=== PATIENT | female | born 1965 | race Caucasian/White ===

== ENCOUNTER 2019-06-04 07:43 | Day surgery (SDC) | payer OTHER ==
[2019-06-03 11:12] VITALS: BMI 37.7
--- NOTE | 2019-06-03 12:38 | HP ---
HISTORY OF PRESENT ILLNESS: Ms. Estrada is a pleasant 54-year-old woman, here today to discuss a long history of severe lower back pain, particularly with movement and walking, but more specifically a right lower extremity pain with numbness and right foot cramping that happens when she takes a few steps or when she "turns the wrong way." She has treated her foot problem with surgery, which did not change her symptoms in any way. She has also been treating her current symptoms with epidural steroid injections, physical therapy, and medications with again little to no avail. Pain is worsened with standing and walking, but improves with sitting, but only briefly as prolonged sitting also makes her back hurt. MRI on disk from outside facility reveals grade 1/borderline 2 slip with bilateral pars defects and associated lateral recess and foraminal stenosis bilaterally, that would well explain her symptoms. PHYSICAL EXAMINATION: NEUROLOGIC: The patient is alert and oriented x3. Gait is stooped and antalgic. Lower extremity motor exam is normal and 5/5 strength in all movements of bilateral lower extremities; however, she does have a positive right straight leg raise. PAST MEDICAL HISTORY: Significant for hypercholesterolemia, chronic pain syndrome, and history of blood clots. PAST SURGICAL HISTORY: Foot surgery in 2016. CURRENT MEDICATIONS: 1. Pravastatin. 2. Losartan. 3. Aspirin. 4. Xarelto. 5. Ranitidine. ALLERGIES: NO KNOWN DRUG ALLERGIES. ASSESSMENT: Pars defect, lumbar spondylolisthesis, lumbar spinal stenosis and radiculopathy. PLAN: Dr. Dewitt met with the patient, reviewed imaging, and advocated for an L5-S1 facetectomy and fusion. He explained to the patient the risks, benefits, and alternatives to the procedure. The patient expressed understanding and elected to move forward with surgery as discussed. I do believe the patient is mentally competent capable of making medical decisions for herself. We will move forward with surgery as planned. Job ID: [id number]
[2019-06-04 09:58] LABS: #Basophils 0.1 thou/uL (0.0-0.2); #Eosinphils 0.2 thou/uL (0.0-0.7); #Lymphocytes 2.1 thou/uL (1.20-3.40); #Monocytes 0.7 thou/uL (0.11-0.59); #Neutrophils 6.2 thou/uL (1.40-6.50); %Basophils 0.6 % (0.0-1.0); %Eosinophils 2.4 % (0.0-10.0); %Lymphocytes 22.9 % (21.0-51.0); %Monocytes 7.4 % (0.0-10.0); %Neutrophils 66.8 % (42.0-75.0); Hemoglobin 15.8 g/dL (12.0-16.0); Mean Corpuscular HGB CONC 34.3 g/dL (32.0-36.0); Mean Corpuscular Hemoglobin 28.5 pg (27.0-31.0); Mean Corpuscular Volume 83.2 fL (78.0-98.0); Mean Platelet Volume 6.8 fL (7.4-10.4); Platelet Count 273 thou/uL (130-400); RBC Distribution Width 12.6 % (11.5-14.5); Red Blood Cell (RBC) Count 5.53 mill/uL (4.20-5.40); White Blood Cell (WBC) Count 9.3 thou/uL (4.8-10.8)
[2019-06-04 10:18] LABS: Anion Gap 15 mmol/L (10-20); BUN (Urea Nitrogen) 16 mg/dL (9.8-20.1); Calc. Creatinine Clearance 96 mL/min (70-130); Calcium 9.3 mg/dL (7.8-10.44); Carbon Dioxide 22 mmol/L (22-29); Chloride 107 mmol/L (98-107); Estimated GFR-MDRD 52; Glucose 116 mg/dL (70-105); Potassium 4.4 mmol/L (3.5-5.1); Sodium 140 mmol/L (136-145)
[2019-06-04] MEDS ORDERED: Thrombin 5000 UNITS/5 ML VIAL ONE (10:23)
[2019-06-04] MEDS ORDERED: EPINEPHrine 1 MG/ML AMP ONE (10:23)
[2019-06-04] MEDS ORDERED: Bupivacaine PF 0.5% 30 ML VIAL ONE (10:23)
[2019-06-04] MEDS ORDERED: Fentanyl 100 MCG/2 ML VIAL ONE (10:31)
[2019-06-04] MEDS ORDERED: Ketorolac Tromethamine 30 MG/ML VIAL ONE (12:02)
[2019-06-04] MEDS ORDERED: PROPOFOL 200 MG/20 ML VIAL ONE (12:02)
[2019-06-04] MEDS ORDERED: EPHEDRINE 25 MG/5 ML SYRINGE ONE (12:02)
[2019-06-04] MEDS ORDERED: Rocuronium Bromide 10 MG/ML (10ML VIAL) ONE (12:02)
[2019-06-04] MEDS ORDERED: Lidocaine 1% PF 5 ML VIAL ONE (12:02)
[2019-06-04] MEDS ORDERED: Glycopyrrolate 0.2 MG/ML 5 ML SYRINGE ONE ×2 (12:02)
[2019-06-04] MEDS ORDERED: Dexamethasone 20 MG/5 ML VIAL ONE (12:02)
--- NOTE | 2019-06-04 13:03 | OP ---
DATE OF PROCEDURE: 06/04/2019 INSTRUMENT STERILIZER: Goyo Lopez PA-C INDICATION: Pain. 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 PROCEDURES PERFORMED: L5-S1 facetectomy and posterolateral instrumented fusion, placement of allograft, and placement of autograft. ANESTHESIA: General. DESCRIPTION OF PROCEDURE: The patient was brought into the operating room and placed under general anesthesia. She was flipped from the supine to prone position on the operating room table. A linear incision was planned over the L5-S1 segment. After prepping and draping and after an appropriate preoperative pause, the incision was created. The soft tissues were swept away from midline. Self-retaining retractors were placed in the wound for optimal exposure. A C-arm image was obtained to confirm the appropriate location. The patient had auto fused on the right side across the facet joints at L5-S1. There was no mobility on that side. At L5-S1 on the left, however, there was an obvious pars defect with motion at the level of the facet joint. The facet joint at L5-S1 on the left was removed as well as the lamina over the central canal. The exiting L5 nerve roots were decompressed bilaterally at L5 and S1 as were the descending nerve roots at S1. After completing the decompression, pedicle screws were placed at L5 and S1 on the left. An intraoperative 3D CT scan was performed to confirm appropriate placement of hardware. A shree was placed across the screw heads and final tightened. Allograft and autograft material were placed along the lateral confines of the instrumentation construct. The wound was irrigated. Hemostasis was maintained throughout. The wound was then closed in anatomic layers and a pressure dressing was applied. There were no known procedural complications. Job ID: [id number]
[2019-06-04] MEDS ORDERED: HYDROcodone/Acetaminophen 5/325 mg Tablet ONE (13:40)
--- NOTE | 2019-06-05 10:35 | EKG ---
Test Reason : PREOP Blood Pressure : / mmHG Vent. Rate : 061 BPM Atrial Rate : 061 BPM P-R Int : 146 ms QRS Dur : 084 ms QT Int : 400 ms P-R-T Axes : 034 028 027 degrees QTc Int : 402 ms Normal sinus rhythm Normal ECG Confirmed by THOMAS CHASE ([id number]) on 06/05/2019 10:35:17 AM Referred By: Omari KELLER Confirmed By:THOMAS CHASE
== END 2019-06-04 16:45 | disposition home or self-care (01) ==
LOC: SDC 07:43
PROVIDERS: ATTEND Neurological Surgery
PROC: 0SG0071 Fusion of Lumbar Vertebral Joint with Autologous Tissue Substitute, Posterior Approach, Posterior Column, Open Approach (ICD-10-PCS; principal; 2019-06-04)
PROC: 00BY0ZZ Excision of Lumbar Spinal Cord, Open Approach (ICD-10-PCS; principal; 2019-06-04)
DX: M48.061 Spinal stenosis, lumbar region without neurogenic claudication (principal); M43.16 Spondylolisthesis, lumbar region; M54.16 Radiculopathy, lumbar region; E78.00 Pure hypercholesterolemia, unspecified; G89.4 Chronic pain syndrome; Z79.01 Long term (current) use of anticoagulants; Z79.82 Long term (current) use of aspirin; Z79.899 Other long term (current) drug therapy
CPT/HCPCS: 36415; 76000; 80048; 85025; 93005; 93010; C1713; J0171; J0690; J1100; J1885; J2001; J2704; J3010; S0020